=== PATIENT | female | born 1950 | race Caucasian/White ===

== ENCOUNTER 2018-05-23 09:02 | Outpatient (CLI) | payer MEDICARE, MEDICAID ==
--- NOTE | 2018-05-23 10:36 | XRAY Report ---
Reason: SHOULDER PAIN Procedure Date: 05/23/2018 Accession Number: [id number] / [id number] Procedure: XRN - Shoulder 2 View RT CPT Code: FULL RESULT: EXAM: RIGHT SHOULDER RADIOGRAPHY EXAM DATE: 05/23/2018 09:34 AM. CLINICAL HISTORY: SHOULDER PAIN. COMPARISON: None. TECHNIQUE: 2 views. FINDINGS: Bones: Normal. No fracture or bone lesion. Joints: Mild degenerative changes in the glenohumeral joint. Soft tissues: The visualized hemithorax is unremarkable. No soft tissue swelling. IMPRESSION: Mild degenerative changes in the glenohumeral joint. [facility]
== END 2018-05-23 09:03 | disposition home or self-care (01) ==
LOC: DI.N 09:02
PROVIDERS: ATTEND Nurse Practitioner
DX: M19.011 Primary osteoarthritis, right shoulder (principal)

== ENCOUNTER 2018-05-23 09:03 | Outpatient (CLI) | payer MEDICARE, MEDICAID ==
--- NOTE | 2018-05-23 10:31 | XRAY Report ---
Reason: CERVICALGIA Procedure Date: 05/23/2018 Accession Number: [id number] / [id number] Procedure: XRN - Cervical Spine 2 View CPT Code: FULL RESULT: EXAM: CERVICAL SPINE RADIOGRAPHY EXAM DATE: 05/23/2018 09:34 AM. CLINICAL HISTORY: CERVICALGIA. COMPARISONS: None. TECHNIQUE: 3 views. FINDINGS: Alignment: Normal. No spondylolisthesis or scoliosis. Bones: The cervical vertebral bodies and posterior elements are well visualized from the skull base through C7-T1. No fractures or bone lesions. Disks: Normal. Disk heights are maintained. Facets: No degenerative disease. Soft Tissues: Normal. No prevertebral soft tissue swelling. The visualized lung apices are clear. IMPRESSION: Normal cervical spine radiography. [facility]
== END 2018-05-23 09:04 | disposition home or self-care (01) ==
LOC: DI.N 09:03
PROVIDERS: ATTEND Nurse Practitioner
DX: M54.2 Cervicalgia (principal); M19.011 Primary osteoarthritis, right shoulder; E03.9 Hypothyroidism, unspecified; E55.9 Vitamin D deficiency, unspecified; I10 Essential (primary) hypertension; R53.83 Other fatigue
CPT/HCPCS: 36415; 72040; 80053; 80061; 82306; 82607; 82746; 84443; 85025

== ENCOUNTER 2018-05-23 09:46 | Outpatient (CLI) | payer MEDICARE, MEDICAID ==
[2018-05-23 14:41] LABS: BASOPHILS # (AUTO) 0.1 10^3/uL (0.0-0.1); BASOPHILS % (AUTO) 1.2 %; EOSINOPHILS # (AUTO) 0.2 10^3/uL (0.0-0.7); EOSINOPHILS % (AUTO) 2.5 %; LYMPHOCYTES # (AUTO) 2.2 10^3/uL (1.5-3.5); LYMPHOCYTES % (AUTO) 35.5 %; MEAN CORPUSCULAR HEMOGLOBIN 31.4 pg (27.0-31.0); MEAN CORPUSCULAR HGB CONC 33.5 g/dL (32.0-36.0); MEAN CORPUSCULAR VOLUME 93.8 fL (81.0-99.0); MEAN PLATELET VOLUME 11.1 fL (7.9-10.8); MONOCYTES # (AUTO) 0.5 10^3/uL (0.0-1.0); MONOCYTES % (AUTO) 7.3 %; NEUTROPHILS # (AUTO) 3.4 10^3/uL (1.5-6.6); NEUTROPHILS % (AUTO) 53.5 %; PLT - PLATELET COUNT 223 10^3/uL (130-450); RED BLOOD COUNT 4.78 10^6/uL (4.20-5.40); RED CELL DISTRIBUTION WIDTH 12.7 % (12.0-15.0); WHITE BLOOD COUNT 6.3 x10^3/uL (4.8-10.8)
[2018-05-23 15:08] LABS: CALCIUM 9.2 mg/dL (8.5-10.3); CARBON DIOXIDE - CO2 30 mmol/L (21-32); CHLORIDE 95 mmol/L (101-111); GLUCOSE 90 mg/dL (70-100); SODIUM 135 mmol/L (135-145)
[2018-05-23 15:30] LABS: THYROID STIMULATING HORMONE < 0.08 uIU/mL (0.34-5.60)
[2018-05-23 15:41] LABS: FOLATE 10.87 ng/mL (5.90 - >24.8)
[2018-05-23 16:25] LABS: ALBUMIN 4.1 g/dL (3.2-5.5); ALBUMIN/GLOBULIN RATIO 1.3 (1.0-2.2); ALKALINE PHOSPHATASE 67 IU/L (42-121); ALT ALANINE AMINOTRANSFERASE 11 IU/L (10-60); AST ASPARTATE AMINOTRANSFERASE 19 IU/L (10-42); BILIRUBIN,TOTAL 0.7 mg/dL (0.2-1.0); BUN - BLOOD UREA NITROGEN 13 mg/dL (6-20); CHOL/HDL RATIO 5.1 (<4.4); CHOLESTEROL 216 mg/dL; CREATININE 0.7 mg/dL (0.4-1.0); GFR - MDRD 83 (>89); HDL CHOLESTEROL 42 mg/dL; LDL CHOLESTEROL,CALCULATED 115 mg/dL; LDL/HDL RATIO 2.7 (<4.4); TOTAL PROTEIN 7.3 g/dL (6.7-8.2); VLDL CHOLESTEROL 59 mg/dL
== END 2018-05-23 23:59 | disposition home or self-care (01) ==
LOC: LAB.N 09:46
PROVIDERS: ATTEND Nurse Practitioner
DX: E03.9 Hypothyroidism, unspecified (principal); E55.9 Vitamin D deficiency, unspecified; I10 Essential (primary) hypertension; R53.83 Other fatigue
CPT/HCPCS: 36415; 80053; 80061; 82306; 82607; 82746; 83721; 84443; 85025

== ENCOUNTER 2018-06-05 08:26 | Outpatient (CLI) | payer MEDICARE, MEDICAID | END 2018-06-05 08:27 | disposition home or self-care (01) | LOC: DI.N 08:26 | PROVIDERS: ATTEND Nurse Practitioner | DX: Z53.9 Procedure and treatment not carried out, unspecified reason (principal) ==

== ENCOUNTER 2018-06-05 08:40 | Outpatient (CLI) | payer MEDICARE, MEDICAID | END 2018-06-05 08:41 | disposition home or self-care (01) | LOC: DI.N 08:40 | DX: Z12.31 Encounter for screening mammogram for malignant neoplasm of breast (principal); E87.6 Hypokalemia; E03.9 Hypothyroidism, unspecified | CPT/HCPCS: 36415; 77067; 80048; 84439; 84481; 86376; 86800 ==

== ENCOUNTER 2018-06-05 11:23 | Outpatient (CLI) | payer MEDICARE, MEDICAID ==
[2018-06-05 19:12] LABS: CALCIUM 9.2 mg/dL (8.5-10.3); CREATININE 0.7 mg/dL (0.4-1.0)
[2018-06-09 14:12] LABS: THYROID PEROXIDASE ANTIBODIES <1 IU/mL (<9)
== END 2018-06-05 11:24 | disposition home or self-care (01) ==
LOC: LAB.N 11:23
PROVIDERS: ATTEND Nurse Practitioner
DX: E87.6 Hypokalemia (principal); E03.9 Hypothyroidism, unspecified
CPT/HCPCS: 36415; 80048; 84439; 84481; 86376; 86800

== ENCOUNTER 2021-05-14 13:22 | Outpatient (CLI) | payer MEDICARE, MEDICAID | END 2021-05-14 13:23 | disposition critical access hospital (66) | LOC: EMS 13:22 | DX: R05.9 Cough, unspecified (principal); R41.82 Altered mental status, unspecified; R09.89 Other specified symptoms and signs involving the circulatory and respiratory systems | CPT/HCPCS: A0425; A0429 ==

== ENCOUNTER 2021-05-14 13:49 | Emergency (ER) | payer MEDICARE, MEDICAID ==
[2021-05-14] MEDS ORDERED: predniSONE 20 MG TABLET PO STA (13:59)
--- NOTE | 2021-05-14 14:01 | ED Physician Documentation ---
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 Hypercholesterolemia and she takes hydrochlorothiazide for pedal edema. She has no formal diagnosis of COPD but has been smoking since the age of 14. She developed what she thought was just a cold a week ago with sinus congestion and sore throat but over the last days or so has developed some shortness of breath and increased cough productive of clear sputum. No fevers. Sats were noted to be around 90. She does not remember when the last time she had her oxygen saturation checked. Review of Systems Ten Systems: 10 systems reviewed and negative Constitutional: denies: Fever, Chills Cardiac: denies: Chest pain / pressure, Palpitations, Pedal edema, Calf pain Respiratory: reports: Dyspnea, Cough. denies: Hemoptysis, Wheezing PD PAST MEDICAL HISTORY - Present Medications Home Medications: Ambulatory Orders Medication Instructions Recorded Confirmed Albuterol Sulf [Ventolin Hfa 1 - 2 puffs INH Q4HR PRN #1 inhaler 05/14/21 Inhaler] predniSONE [Deltasone] 20 mg PO [id number] #[id number] tab 05/14/21 - Allergies Allergies/Adverse Reactions: Allergies Allergy/AdvReac Type Severity Reaction Status Date / Time No Known Drug Allergies Allergy Verified 05/14/21 13:57 PD ED PE NORMAL - Vitals Vital signs reviewed: Yes - General General: Alert and oriented X 3, No acute distress - HEENT HEENT: PERRL, EOMI - Neck Neck: Supple, no meningeal sign, No bony TTP - Cardiac Cardiac: RRR, No murmur - Respiratory Respiratory: No respiratory distress, Other (Mild expiratory wheezes, n onlabored, really no focal findings.) - Abdomen Abdomen: Non tender - Back Back: No CVA TTP, No spinal TTP - Derm Derm: Normal color, Warm and dry - Extremities Extremities: No edema, No calf tenderness / cord - Neuro Neuro: Alert and oriented X 3, Normal speech Results - Vitals Vitals: Vital Signs - 24 hr 05/14/21 05/14/21 05/14/21 13:58 15:16 15:41 Temperature 36.9 C Heart Rate 89 70 64 Respiratory 17 20 24 Rate Blood Pressure 134/81 H 133/63 H O2 Saturation 92 93 Oxygen O2 Source Room air - EKG (time done) 1411 Rate: Rate (enter#) (59) Rhythm: NSR [place]: Normal Intervals: Prolonged [place] QRS: Low voltage Ischemia: Non specific changes - Labs Labs: Laboratory Tests 05/14/21 13:54 Nasal Adenovirus (PCR) NOT DETECTED Nasal B. parapertussis DNA (PCR) NOT DETECTED Nasal Coronavir 229E PCR NOT DETECTED Nasal Coronavir HKU1 PCR NOT DETECTED Nasal Coronavir NL63 PCR NOT DETECTED Nasal Coronavir OC43 PCR NOT DETECTED Nasal Enterovir/Rhinovir PCR NOT DETECTED Nasal Influenza B PCR NOT DETECTED Nasal Influenza A PCR NOT DETECTED Nasal Parainfluen 1 PCR NOT DETECTED Nasal Parainfluen 2 PCR NOT DETECTED Nasal Parainfluen 3 PCR NOT DETECTED Nasal Parainfluen 4 PCR NOT DETECTED Nasal RSV (PCR) DETECTED A Nasal B.pertussis DNA PCR NOT DETECTED Nasal C.pneumoniae (PCR) NOT DETECTED Hugh Human Metapneumo PCR NOT DETECTED Nasal M.pneumoniae (PCR) NOT DETECTED Nasal SARS-CoV-2 (PCR) NOT DETECTED PD MEDICAL DECISION MAKING - ED course ED course: 70-year-old woman who may well have underlying COPD presents with shortness of breath. Some borderline sats but pretty good numbers while here. Chest x-ray was negative. Found to have RSV and started on steroids and albuterol. She understands she should not stop her regular hydrocortisone or other medications while on the burst of steroids. Departure - Departure Disposition: 01 Home, Self Care Clinical Impression: RSV infection Upper respiratory tract infection Qualifiers: URI type: acute nasopharyngitis (common cold) Qualified Code(s): J00 - Acute nasopharyngitis [common cold] Condition: Good Record reviewed to determine appropriate education?: Yes Instructions: ED COPD Flare, ED Viral Syndrome Prescriptions: Albuterol Sulf [Ventolin Hfa Inhaler] 1 - 2 puffs INH Q4HR PRN #1 inhaler PRN Reason: Shortness Of Air/Wheezing predniSONE [Deltasone] 20 mg PO [id number] #21 tab Comments: As discussed, I suspect you do have underlying COPD and now have an exacerbation related to a virus called respiratory syncytial virus. Your viral panel was otherwise negative including a negative Covid test. Return for new or worsening symptoms. It would be ideal if you can quit smoking and follow-up with your primary care physician, next available appointment.
--- NOTE | 2021-05-14 14:34 | XRAY Report ---
PROCEDURE: Chest 1 View X-Ray INDICATIONS: cough dyspnea TECHNIQUE: One view of the chest was acquired. COMPARISON: None FINDINGS: Surgical changes and devices: None. Lungs and pleura: No pleural effusions or pneumothorax. Lungs are clear. Mediastinum: Mediastinal contours appear normal. Heart size is normal. Bones and chest wall: No suspicious bony lesions. Overlying soft tissues appear unremarkable. IMPRESSION: No acute cardiopulmonary abnormality. Reviewed by: Praveen Gomez on 05/14/2021 1:33 PM [facility] Approved by: Praveen Gomez on 05/14/2021 1:33 PM [facility] Station ID: [id number]
[2021-05-14] MEDS ORDERED: ALBUTEROL 1 PUFF INH STA (14:40)
[2021-05-14 14:54] LABS: B. PARAPERTUSSIS- RESP PCR PAN NOT DETECTED; B. PERTUSSIS- RESP PCR PANEL NOT DETECTED; C. PNEUMONIAE- RESP PCR PANEL NOT DETECTED; CORONAVIRUS 229E-RESP PCR NOT DETECTED; CORONAVIRUS HKU1-RESP PCR NOT DETECTED; CORONAVIRUS NL63-RESP PCR NOT DETECTED; CORONAVIRUS OC43-RESP PCR NOT DETECTED; HUMAN METAPNEUMOVIRUS NOT DETECTED; INFLUENZA A- RESP PCR PANEL NOT DETECTED; INFLUENZA B - RESP PCR PANEL NOT DETECTED; M. PNEUMONIAE- RESP PCR PANEL NOT DETECTED; PARAINFLUENZA VIRUS 1 NOT DETECTED; PARAINFLUENZA VIRUS 2 NOT DETECTED; PARAINFLUENZA VIRUS 3 NOT DETECTED; PARAINFLUENZA VIRUS 4 NOT DETECTED; RHINOVIRUS/ENTEROVIRUS NOT DETECTED; RSV- RESP PCR PANEL DETECTED; SARS-CoV-2 -RESP PCR PANEL NOT DETECTED
[2021-05-14 15:42] VITALS: BP 133/63
== END 2021-05-14 16:41 | disposition home or self-care (01) ==
LOC: EDUNIT# → ED 13:49
DX: J06.9 Acute upper respiratory infection, unspecified (principal); B97.4 Respiratory syncytial virus as the cause of diseases classified elsewhere; F17.200 Nicotine dependence, unspecified, uncomplicated; Z20.822 Contact with and (suspected) exposure to COVID-19
CPT/HCPCS: 71045; 87631; 93005; 94640; 94664; 99283; 99284; J7512; 0202U; 80048; 82803; 83735; 84100; 85025